=== PATIENT | female | born 2005 | race Caucasian/White ===

== ENCOUNTER 2025-07-24 20:26 | Emergency (ER) | payer MEDICAID, OTHER ==
[~2025-07-24] VITALS: Ht 160 cm; Wt 50.0 kg
[2025-07-24 20:39] VITALS: BP 107/63; TEMP 36.9; O2SAT 98
[2025-07-24 20:40] VITALS: PULSE 98; RESP 18; O2SAT 99
[2025-07-24] MEDS ORDERED: TETANUS, DIPHTHERIA, PERTUSSIS VAC/PF 0.5ML (>10YR OLD) IM ONE (21:45)
[2025-07-24] MEDS: KETOROLAC 15MG/ML VIAL IM ONE (21:45)
[2025-07-24] MEDS: LIDOCAINE HCL 1% 20ML VIAL INFIL ONE (21:45)
[2025-07-24] MEDS ORDERED: CEPH500C2 MT (22:52)
[2025-07-24] MEDS ORDERED: SULF1TAB48 MT (22:52)
[2025-07-24] MEDS: KETOROLAC 15MG/ML VIAL IM NR (23:00)
[2025-07-24] MEDS: TETANUS, DIPHTHERIA, PERTUSSIS VAC/PF 0.5ML (>10YR OLD) IM ONE (23:06)
[2025-07-24] MEDS: LIDOCAINE HCL 1% 20ML VIAL INFIL NR (23:06)
== END 2025-07-24 23:13 | disposition home or self-care (01) ==
LOC: ER 20:26
DX: L02.419 Cutaneous abscess of limb, unspecified (principal)
CPT/HCPCS: 99284; 81025; 90715; 90471; J1885; J2003